=== PATIENT | female | born 1950 | race Hispanic/Latino ===

== ENCOUNTER 2025-03-02 12:30 | Inpatient (IN) | payer OTHER ==
[~2025-03-02] VITALS: Ht 157.5 cm; Wt 84.8 kg
[2025-03-02 13:58] LABS: BASOPHILS # (AUTO) 0.06 K/uL (0.00-0.20); BASOPHILS % (AUTO) 0.6 % (0.0-5.0); EOSINOPHILS # (AUTO) 0.22 K/uL (0.00-0.70); EOSINOPHILS % (AUTO) 2.2 % (0.0-8.0); HEMATOCRIT 31.6 % (36-48); IMMATURE GRANULOCYTE ABSOLUTE 0.07 K/uL (0-1); LYMPHOCYTES # (AUTO) 2.5 K/uL (1.0-4.8); LYMPHOCYTES % (AUTO) 25.7 % (21.0-51.0); MEAN CORPUSCULAR HEMOGLOBIN 29.2 pg (27.0-33.0); MEAN CORPUSCULAR HGB CONC 32.6 g/dL (32.0-36.0); MEAN CORPUSCULAR VOLUME 89.5 fL (79-99); MONOCYTES # (AUTO) 0.8 K/uL (0.1-1.0); MONOCYTES % (AUTO) 7.8 % (3.0-13.0); NEUTROPHILS # (AUTO) 6.2 K/uL (1.8-7.7); PLATELET COUNT (AUTO) 285 K/uL (130-400); RED BLOOD CELL COUNT(AUTO) 3.53 MIL/uL (4.00-5.50); WHITE BLOOD COUNT (AUTO) 9.8 K/uL (4.8-10.8)
[2025-03-02 14:06] LABS: CREATININE 1.4 mg/dL (0.5-1.0); POTASSIUM 4.2 mmol/L (3.5-5.1)
--- NOTE | 2025-03-02 14:07 | HMCIMG ---
Wrong films submitted. IMPRESSION: Wrong films submitted.
--- NOTE | 2025-03-02 14:13 | ERN ---
General Chief Complaint: Wound Check Stated Complaint: PHYSICIANS REFERRAL FOR ANTIBIOTICS Time Seen by MD: 12:31 History of Present Illness Initial Comments 25-year-old female history of diabetes presents for right wound infection. Patient reports that for the last four or so months if patient was had right- sided cellulitis and osteomyelitis in the foot. She was admitted to [facility] as well as a long-term nursing facility for IV antibiotics. She has been home for the last couple of weeks, but she was called by Dr. Tatum and told that the cultures were positive and she needs IV antibiotics. She denies any systemic symptoms currently. Patient has a note from [facility] Dr. Tatum, reports that patient had a wound culture which showed heavy growth of Klebsiella pneumoniae and carbapenem resistant acinetobacter Baumannii, MRSA, and Prevotella species. Allergies: Coded Allergies: ibuprofen (Unverified Allergy, Intermediate, 03/02/25) Past Medical History Past Medical History: Diabetes-Type II, High Cholesterol, Hypertension Past Surgical History: Other Surgical History Other: RIGHT TOE AMPUTATION ROS Dictation CONSTITUTIONAL: No chills, no fever, no weakness, no diaphoresis, no malaise. HEAD/FACE: No signs of trauma. EENT: No eye pain, no blurred vision, no tearing, no double vision, no ear pain, no ear discharge, no nose pain, no nasal congestion, no throat pain, no throat swelling, no mouth pain. RESPIRATORY: No cough, no orthopnea, no SOB, no stridor, no wheezing. CARDIOVASCULAR: No chest pain, no edema, no palpitations, no syncope. GASTROINTESTINAL/ABDOMINAL: No abdominal pain, no constipation, no diarrhea, no nausea, no vomiting. GENITOURINARY: No abnormal discharge, no dysuria, no frequent urination, no hematuria. No complaints of pain in the genitals. MUSCULOSKELETAL: No back pain, no gout, no joint pain, no joint swelling, no muscle pain, no muscle stiffness, no neck pain. INTEGUMENTARY: No change in color, no change in hair/nails, no dryness, no lesion, no lumps, no rash. NEUROLOGICAL/PSYCH: No anxiety, not depressed, no emotional problem, no headache, no numbness, no pre-existing deficit, no history of seizures, no tremors, no weakness. HEMATOLOGIC/LYMPHATIC: Not anemic, no history of blood clots, no apparent bl eeding, no bruising, glands not swollen. All Systems Negative, Except as Noted. Physical Exam Physical Exam Dictation VITAL SIGNS: Reviewed. GENERAL APPEARANCE: Alert, oriented x3, no acute distress. HEAD AND FACE: Non-traumatic. EYES: PERRL, pink conjunctivas, eyelid no trauma, anterior chamber clear. EARS: Pinnas intact and no signs of trauma or erythema. Ear canals clear and no discharge. TMs no erythema. NOSE: No discharge, no bleeding. OROPHARYNX: Mouth normal, teeth no caries, tongue pink. Pharynx clear, no erythema. Tonsils no exudates, no abscesses noted. Mucous membrane moist. NECK: Supple, non-tender, no thyromegaly, no masses, no JVD, no bruits. BREAST: Deferred. CHEST: No tenderness, no crepitus, no paradoxical movement, no retractions. LUNGS: Clear, well-ventilated, symmetric, no rales, no wheezing, no rhonchi, no stridor, good breath sounds bilaterally. HEART: Regular rate, regular rhythm, no murmur, no gallops. VASCULAR: No peripheral edema. ABDOMEN: Soft, positive bowel sounds, nondistended, no guarding, nontender, no rebound, no masses no hepatomegaly, no splenomegaly, no Monet's sign, no hernias. RECTAL: Deferred. GENITAL: Deferred. NEUROLOGICAL: Normal speech, gross motor function intact, gross sensory function intact. MUSCULOSKELETAL: Neck nontender, full range of motion, back nontender, full range of motion. R foot wound EXTREMITIES: Nontender, full range of motion. SKIN: Color pink, dry, no turgor, no rash, no lacerations, no abrasions, no contusions. LYMPHATICS: Deferred. Results Laboratory and Microbiology Lab and Micro Result Laboratory Tests Test 03/02/25 13:47 White Blood Count 9.8 K/uL (4.8-10.8) Red Blood Count 3.53 MIL/uL (4.00-5.50) L Hemoglobin 10.3 g/dL (12.0-16.0) L Hematocrit 31.6 % (36-48) L Mean Corpuscular Volume 89.5 fL (79-99) Mean Corpuscular Hemoglobin 29.2 pg (27.0-33.0) Mean Corpuscular Hemoglobin Concent 32.6 g/dL (32.0-36.0) Red Cell Distribution Width 18.0 % (11.0-15.5) H Platelet Count 285 K/uL (130-400) Mean Platelet Volume 10.6 fL (7.5-10.5) H Immature Granulocyte % (Auto) 0.7 % (0-1) Neutrophils (%) (Auto) 63.0 % (40.0-77.0) Lymphocytes (%) (Auto) 25.7 % (21.0-51.0) Monocytes (%) (Auto) 7.8 % (3.0-13.0) Eosinophils (%) (Auto) 2.2 % (0.0-8.0) Basophils (%) (Auto) 0.6 % (0.0-5.0) Neutrophils # (Auto) 6.2 K/uL (1.8-7.7) Lymphocytes # (Auto) 2.5 K/uL (1.0-4.8) Monocytes # (Auto) 0.8 K/uL (0.1-1.0) Eosinophils # (Auto) 0.22 K/uL (0.00-0.70) Basophils # (Auto) 0.06 K/uL (0.00-0.20) Absolute Immature Granulocyte (auto 0.07 K/uL (0-1) Nucleated Red Blood Cells 0.0 % (0.0-0.19) Prothrombin Time 10.7 SEC (9.6-11.6) Prothromb Time International Ratio 1.01 (0.85-1.15) Activated Partial Thromboplast Time 26.6 SEC (26.3-35.5) Sodium Level 135 mmol/L (136-145) L Potassium Level 4.2 mmol/L (3.5-5.1) Chloride Level 98 mmol/L (101-111) L Carbon Dioxide Level 30 mmol/L (21-32) Blood Urea Nitrogen 34 mg/dL (7-18) H Creatinine 1.4 mg/dL (0.5-1.0) H Glomerular Filtration Rate Calc 39 mL/min (>90) Random Glucose 134 mg/dL (70-105) H Total Calcium 8.8 mg/dL (8.5-10.1) C-Reactive Protein, Quantitative 6.30 mg/L (0.5-3.0) H MDM CC: Right diabetic foot infection Historian: Patient Comorbidities: Diabetes, high cholesterol, hypertension Limitations by social determinants of health: None Differential diagnosis, SIRS, sepsis, osteomyelitis, cellulitis, diabetic foot ulcer, hyperglycemia, electrolyte abnormalities, other. Vital signs: Hypertension otherwise unremarkable. Clinical exam: No open wound, possibly some cellulitis, neurovascularly intact. She did have a 2nd digit amputation already. Labs ( independently ordered and interpreted by me): No leukocytosis, normocytic anemia baseline for patient. Coags are stable. Chemistry panel shows stable electrolytes creatinine 1.4 BP 134. Elevated CRP inflammation. External chart review: I reviewed a [facility]. Tatum, recommends admission, consult Dr. England and Dr. Potts. MRI without contrast of the right foot. Also recommends starting she Tigacycline and Flagyl. Consult: hospitalist for admission ED Course Orders Procedure Category Date Status Time Cbc With Differential LAB 03/02/25 In Process 12:51 Basic Metabolic Panel LAB 03/02/25 Complete 12:51 Crp Quantitative LAB 03/02/25 Complete 12:51 Erythrocyte LAB 03/02/25 In Process Sedimentation Rate 12:51 Blood Cult AGUSTIN 03/02/25 In Process 12:51 Foot Comp 3+Vws Rt RAD 03/02/25 Resulted 12:51 Place Picc Line CPOE 03/02/25 Transmitted 14:09 Obtain Consent For: CPOE 03/02/25 Transmitted 14:09 Pt And Ptt LAB 03/02/25 Complete 14:16 Vital Signs Date Time Temp Pulse Resp B/P (MAP) Pulse Ox O2 Delivery O2 Flow Rate FiO2 03/02/25 12:39 98.4 86 20 195/83 99 Room Air 0 DX & DISP Disposition: Inpatient Departure Impression: Primary Impression: Cellulitis of right foot Condition: Stable Referrals: TALAT SPEAR MD (PCP) RADHA LOJA DO Mar 02, 2025 14:13
[2025-03-02 14:38] LABS: INR 1.01 (0.85-1.15); PROTHROMBIN TIME 10.7 SEC (9.6-11.6)
[2025-03-02 14:39] LABS: PARTIAL THROMBOPLASTIN TIME 26.6 SEC (26.3-35.5)
[2025-03-02] MEDS ORDERED: PHARMACY COMMUNICATION MISC SCH (15:00)
[2025-03-02] MEDS ORDERED: morPHINE 2 MG SYG IVP PRN (15:00)
[2025-03-02] MEDS ORDERED: acetaMINOPHEN 650 MG SUPPOSITORY RC PRN (15:00)
[2025-03-02] MEDS ORDERED: morPHINE 4 MG SYG IVP PRN (15:00)
[2025-03-02 15:02] LABS: ERYTHROCYTE SEDIMENTATION RATE 93 MM/HR (0-30)
[2025-03-02 15:30] VITALS: O2SAT 99
[2025-03-02] MEDS: metRONIDazole 500MG/100ML BAG 100 ML IVPB SCH (15:30)
[2025-03-02] MEDS: TIGECYCLINE 100 MG in 0.9%NACL 100ML 100 ML IV ONE (15:30)
--- NOTE | 2025-03-02 16:12 | NUR ---
DCP: HOME Pt currently lives alone in her own home. Pt denied experiencing any insecurities with food, senior living, and/or utilities.Pt uses a walker to ambulate. Pt reports being able to complete ADLS independently and only sometimes needs help getting out of the shower due to a wound that she has on her foot. Pt is receiving wound care from [facility] 3x a week. PCP is Dr. Leilani Wiseman and uses [facility] for any RX needs. Addendum: 03/02/25 at 1614 by LINDA RUSSO SS Amended: Links added.
[2025-03-02 16:41] VITALS: BP 166/78; PULSE 80; RESP 18; TEMP 98.2
--- NOTE | 2025-03-02 18:38 | HMCIMG ---
Exam Type: CHEST 1VW Clinical Information: s/p PICC placement Comparison: None Findings: Left PICC line is noted with tip within the mid superior vena cava The lungs are clear of infiltrates. The heart is enlarged. Bony and soft tissue structures of the chest wall are unremarkable. IMPRESSION: Cardiomegaly. Clear lungs.
[2025-03-02] MEDS ORDERED: PREG75CA76 PO (18:55)
[2025-03-02] MEDS ORDERED: MELA10CA2 PO (19:18)
[2025-03-02 19:24] VITALS: O2SAT 96
[2025-03-02] MEDS ORDERED: DIPH25CA85 PO (19:47)
[2025-03-02 20:00] VITALS: BP 159/75; PULSE 85; RESP 20; TEMP 98.6
--- NOTE | 2025-03-02 20:21 | HP ---
[facility] HISTORY & PHYSICAL Date Patient Seen: Mar 02, 2025 Time of Visit: 20:12 Supervising Physician: Dr Henry Garrett Primary Care Physician: Dr Wiseman Outpatient Specialists: [ ] Inpatient Consults: ID, Podiatry PROBLEM LIST: Nonhealing wound, right foot, POA Right foot cellulitis, wound culture done outside showed Klebsiella pneumoniae, carbapenem resistant Acinetobacter, MRSA, POA Peripheral vascular disease, POA DM type, POA Hypertension, POA Peripheral neuropathy, POA PLAN: Admit to medical-surgical floor VS per unit protocol Continue antibiotics ID and Podiatry consulted Wound care consult Treat fever aggressively Monitor temperature ISS and fingerstick per unit protocol Keep SBP less than 160 P.r.n. hydralazine and labetalol Bilateral SCDs Keep serum glucose less than 150 CBC, CMP, magnesium level daily HPI: 75-year-old female with past medical history of hypertension, heart murmur, DM type 2, peripheral neuropathy, PVD as s/p right 2nd toe amputation last October [address] Tatum, who presented to ED as a direct admit five Dr. Kim office here for evaluation for possible right foot cellulitis/osteomyelitis. Apparently patient underwent right 2nd toe palpitation last October 10, 2024 afterwards was sent home on outpatient wound care. Per patient two weeks ago patient underwent wound culture, and saw Dr. Tatum for results today. Patient was subsequently advised to come to ED for further medical evaluation and antibiotic therapy since her wound culture showed heavy growth of Klebsiella pneumoniae, Acinetobacter, and MRSA. At present patient is currently hemodynamically stable, on room air with appropriate oxygen saturation, denies any headache, chest pain, fever, flu-like symptoms diarrhea, or difficulty urinating. Patient denies any smoking, alcohol intake illicit drug use. Podiatry and ID was consulted pending evaluation and plan. PAST MEDICAL HX: see above PAST SURGICAL HX: Status post right 2nd toe amputation last October [address] Tatum SOCIAL HISTORY: No tobacco, ETOH, or illicit drug use Coded Allergies: ibuprofen (Unverified Allergy, Intermediate, 03/02/25) REVIEW OF SYSTEMS: 12 point ROS reviewed with patient. Pertinent positives mentioned above. Otherwise negative. PHYSICAL EXAM: GENERAL: alert, weak, awake oriented x 3 HEENT: EOMI, Sclera non icteric, moist mucosa NECK: Supple, no JVD, trachea midline LUNGS: Clear breath sounds bilaterally. No wheezes HEART: Regular rate and rhythm. Normal S1 and S2, without murmurs ABD: Abdomen soft, nontender. Bowel sounds present EXT: No clubbing cyanosis or edema; right foot cellulitis, with dressing in place NEURO: Alert and oriented to person, follows commands Vital Signs (last 8hr) Date Time Temp Pulse Resp B/P (MAP) Pulse Ox O2 Delivery O2 Flow Rate FiO2 03/02/25 20:00 98.6 85 20 159/75 97 Room Air 03/02/25 16:41 98.2 80 18 166/78 98 Room Air 03/02/25 16:06 99.0 77 16 162/68 99 Room Air* 0 21 03/02/25 14:25 99.0 70 16 178/77 98 Room Air* 0 21 03/02/25 12:39 98.4 86 20 195/83 99 Room Air 0 LABS: Hematology Labs: Test 03/02/25 13:47 Range/Units White Blood Count 9.8 4.8-10.8 K/uL Red Blood Count 3.53 L 4.00-5.50 MIL/uL Hemoglobin 10.3 L 12.0-16.0 g/dL Hematocrit 31.6 L 36-48 % Mean Corpuscular Volume 89.5 79-99 fL Mean Corpuscular Hemoglobin 29.2 27.0-33.0 pg Mean Corpuscular Hemoglobin Concent 32.6 32.0-36.0 g/dL Red Cell Distribution Width 18.0 H 11.0-15.5 % Platelet Count 285 130-400 K/uL Mean Platelet Volume 10.6 H 7.5-10.5 fL Immature Granulocyte % (Auto) 0.7 0-1 % Neutrophils (%) (Auto) 63.0 40.0-77.0 % Lymphocytes (%) (Auto) 25.7 21.0-51.0 % Monocytes (%) (Auto) 7.8 3.0-13.0 % Eosinophils (%) (Auto) 2.2 0.0-8.0 % Basophils (%) (Auto) 0.6 0.0-5.0 % Neutrophils # (Auto) 6.2 1.8-7.7 K/uL Lymphocytes # (Auto) 2.5 1.0-4.8 K/uL Monocytes # (Auto) 0.8 0.1-1.0 K/uL Eosinophils # (Auto) 0.22 0.00-0.70 K/uL Basophils # (Auto) 0.06 0.00-0.20 K/uL Absolute Immature Granulocyte (auto 0.07 0-1 K/uL Nucleated Red Blood Cells 0.0 0.0-0.19 % Red Blood Cell Morphology See comments Erythrocyte Sedimentation Rate 93 H 0-30 MM/HR Chemistry Labs: Test 03/02/25 20:07 03/02/25 15:36 03/02/25 13:47 Range/Units Whole Blood Glucose 236 #H 70-110 MG/DL Lactic Acid Level 1.1 0.8-2.5 mmol/L Sodium Level 135 L 136-145 mmol/L Potassium Level 4.2 3.5-5.1 mmol/L Chloride Level 98 L 101-111 mmol/L Carbon Dioxide Level 30 21-32 mmol/L Blood Urea Nitrogen 34 H 7-18 mg/dL Creatinine 1.4 H 0.5-1.0 mg/dL Glomerular Filtration Rate Calc 39 >90 mL/min Random Glucose 134 H 70-105 mg/dL Total Calcium 8.8 8.5-10.1 mg/dL C-Reactive Protein, Quantitative 6.30 H 0.5-3.0 mg/L Coagulation Labs: Test 03/02/25 13:47 Range/Units Prothrombin Time 10.7 9.6-11.6 SEC Prothromb Time International Ratio 1.01 0.85-1.15 Activated Partial Thromboplast Time 26.6 26.3-35.5 SEC DIAGNOSTICS / RADIOLOGY RESULTS: [ ] PLAN NEURO: Minimize central acting medications as possible. Maintain fall precautions, adequate lighting during the day PULMONARY: Supplemental 02 as needed. Maintain aspiration precautions at all times CARDIOVASCULAR: Follow hemodynamics. Vital signs per facility protocol GI & NUTRITION: Continue with nutritional support. Continue stool softeners and laxatives as needed. KIDNEYS & ELECTROLYTES: Strict monitoring of intake, output and overall fluid balance. Avoid nephrotoxic medications to the extent possible. Medications to be dosed according to renal function. Monitor electrolytes and replace as needed ENDOCRINE: Maintain blood glucose between 100-180 at all times. Hypoglycemia protocol in place INFECTIOUS DISEASE: Trend temperature, WBC and procalcitonin level Follow cultures, deescalate antibiotics as soon as possible. Panculture if new onset fever ONCOLOGY/HEMATOLOGY/COAGULATION: Monitor for s/s of bleeding Monitor hemoglobin, coagulation studies as needed SKIN: Pressure ulcer prevention per facility protocol Specialty mattress ORTHO/REHAB: Continue PT/OT Prophylaxis: Continue GI and DVT prophylaxis Code Status: Full Resuscitation Disposition: TBD Other: Total patient care time exceeds 35 minutes excluding all procedures. Supervising physician: RAYMON Alonso STOCK CLERK [employer] Mar 02, 2025 20:21
[2025-03-02] MEDS: 0.9%NACL 1000ML 1,000 ML IV SCH (21:23)
[2025-03-02] MEDS: pregABALin 75 MG CAPSULE PO SCH (21:25)
[2025-03-02] MEDS: MELATONIN 5 MG TABLET PO SCH (21:25)
[2025-03-02] MEDS: TIGECYCLINE 50 MG in 0.9%NACL 100ML 100 ML IV SCH (21:25)
[2025-03-02] MEDS: DiphenhydrAMINE HCL 25 MG CAPSULE PO SCH (21:25)
[2025-03-02 23:20] VITALS: BP 160/69; PULSE 75; RESP 20; TEMP 98.7
[2025-03-03] VITALS (8 sets, daily range): BP systolic 115–171; BP diastolic 65–75; PULSE 59–99; RESP 16–20; TEMP 97.6–98.8; O2SAT 98–99
--- NOTE | 2025-03-03 02:23 | CONS ---
INFECTIOUS DISEASE CONSULTATION NOTE DATE OF SERVICE: 03/02/2025 REQUESTING PHYSICIAN: Kevin Tatum DPM REASON FOR CONSULTATION: Right foot osteomyelitis and a wound infection. HISTORY OF PRESENT ILLNESS: A 75-year-old female with history of diabetes mellitus, right foot osteomyelitis and obesity, who presented to the hospital with right foot wound infection. The patient had also right second toe osteomyelitis for which amputation was done in the past. Also was complicated by surgical wound infection. Culture grew multiple organisms, ____ multidrug, was treated with prolonged course of antibody at [facility]. The patient eventually did well and was sent home. The patient was followed up with Dr. Tatum at [facility]. Wound culture done now showing Klebsiella pneumoniae and Acinetobacter baumannii, which are resistant to multiple agents. The patient was sent to the hospital for further evaluation. Denies fever or chills. No weight loss, no night sweats. No trauma or fall. PAST MEDICAL HISTORY: * Diabetes mellitus. * Right foot osteomyelitis. * Hypertension. * Obesity. * Cellulitis. PAST SURGICAL HISTORY: * Right second toe amputation. * Right foot wound debridement. * Peripheral angiogram. ALLERGIES: No known drug allergies. CURRENT MEDICATIONS: Reviewed. SOCIAL HISTORY: Lives with family. No alcohol, tobacco or illicit drug use. FAMILY HISTORY: Positive for diabetes mellitus. REVIEW OF SYSTEMS: CONSTITUTIONAL: No fever or chills. No weight loss or night sweats. EYES: No eye pain. No photophobia or diplopia. HENT: No sore throat. No rhinorrhea or earache. NECK: No neck pain or neck swelling. RESPIRATORY: No cough. No hemoptysis or pleuritic pain. CARDIOVASCULAR: No chest pain. No palpitation or orthopnea. GASTROINTESTINAL: Denies nausea or vomiting. GENITOURINARY: No dysuria, urgency, or urinary frequency. CENTRAL NERVOUS SYSTEM: No headache, dyspnea or slurred speech. PSYCHIATRY: No depression. No suicidal ideation. MUSCULOSKELETAL: No joint pain or joint swelling. SKIN: Denied rashes or itchiness. PHYSICAL EXAMINATION: GENERAL: Elderly female, awake. VITAL SIGNS: Temperature 98.2, pulse 80, respiratory rate 18, BP 116/78. EYES: No icterus. Pupils equal and reactive. HENT: No oral thrush seen. Moist oral mucosa. NECK: Supple. No JVD or thyromegaly. LUNGS: Good air entry. No rales. No rhonchi. CARDIOVASCULAR: S1, S2 regular. No murmur heard. ABDOMEN: Full, soft, nontender. Bowel sound is present. CENTRAL NERVOUS SYSTEM: Awake, alert, oriented x 3. No focal deficits. SKIN: No rashes, no itchiness. LYMPHATIC: No peripheral lymphadenopathy. BACK: No deformity. No pressure ulcer. EXTREMITIES: Status post right second toe amputation. Very minimal superficial ulcer. There is surrounding edema. No drainage is seen. LABORATORY DATA: ESR 93. Sodium 135, potassium 4.2, BUN 34, creatinine 1.4. WBC 9.8, hemoglobin 10.3, platelets 295. RADIOLOGY: X-ray of the right foot pending. ASSESSMENT: A 75-year-old female admitted with right foot wound infection. Current problems include: * Possible right foot osteomyelitis. * Right foot cellulitis. * Polymicrobial wound infection. * Infection with multidrug resistant organism. * Diabetes mellitus. * Elevated ESR. PLAN: * Start the patient on tigecycline. * Start the patient on metronidazole. * Continue wound care. * Obtain MRI of the right foot. * Continue pain management. * Continue antidiabetic. * Continue nutritional support. * The patient will be followed up closely. * Further recommendation will depend on MRI results. Thank you for allowing me to participate in the care of this patient. TID: [id number] RECEIPT: [id number]
--- NOTE | 2025-03-03 05:56 | CONS ---
HISTORY OF PRESENT ILLNESS: The patient is a very pleasant 75-year-old diabetic female, who was admitted with a right foot cellulitis, multidrug-resistant organism infection, being followed by Dr. Kevin Tatum as an outpatient, being followed by Dr. England from Infectious Disease standpoint. The patient is without complaints of pain. She has a T-max today of 99.0, blood pressure 175/83. She has a pulse of 86, respirations of 20. She has a white count that is 9.8, H and H 10.3 and 31.6, platelets 285. The patient has an x-ray of her right foot. The results of the x-ray of the right foot shows destruction of the distal aspect of the proximal interphalangeal joint of the first phalanx, suggestive of osteomyelitis and possible septic arthritis. There is an amputation of the second toe at the mid metatarsal level noted radiographically. The patient was admitted through the ER at the recommendation of Dr. Denisse Tatum, her outpatient port engineer, with a concern of right foot infection, cellulitis, and osteomyelitis. The patient has been at both [facility] as well as [facility] for IV antibiotic therapy. She had been at home for several weeks after being discharged from [facility] and was receiving local wound care with [facility]. Notes sent from Dr. Tatum showed the patient had cultures, which showed heavy growth of Klebsiella pneumoniae and Carbapenem-resistant Acinetobacter baumannii hemolyticus, MRSA, and Prevotella species. PAST MEDICAL HISTORY: Type 2 diabetes, elevated cholesterol, hypertension. PAST SURGICAL HISTORY: Partial right second ray amputation. ALLERGIES: THE PATIENT HAS ALLERGY TO IBUPROFEN. REVIEW OF SYSTEMS: CONSTITUTIONAL: Having no chills, no fevers, no night sweats, no nausea, vomiting, no diarrhea, no pain to the right foot. GENITOURINARY: No dysuria. BUN and creatinine levels 34 and 1.4. PSYCHIATRIC: Denies depression. 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 INTEGUMENT: She has an ulcer to the medial aspect of the right great toe, approximately 15 x 20 x 1 mm. She has an ulcer to the second ray amputation site that is measured approximately 35 x 5 x 1 mm. There is no deep tracking. There is no expressible purulence. There is no evidence of any abscess formation. There is mild edema, mild erythema to the area. EXTREMITIES: The patient has palpable pedal pulses. She has absent protective sensation to her feet bilaterally. ASSESSMENT: Nonhealing wound to the right foot, multidrug-resistant organism infection. X-rays suggesting septic arthritis to the interphalangeal joint of the right great toe and osteomyelitis to the interphalangeal joint right great toe, diabetes, hypertension, peripheral neuropathy, history of peripheral vascular disease, history of hypertension, heart murmur, type 2 diabetes, status post second partial ray amputation in 10/2024. The patient is currently receiving Lovenox, melatonin, Benadryl, Lyrica, tigecycline, metronidazole, morphine, and acetaminophen. PLAN: I took a culture of the wound and sent it to the lab. I flushed the wound with sterile saline. I applied a dressing of Silvasorb gel and Hydrofera Blue, 4 x 4 gauze and Kerlix. The patient will be evaluated by Infectious Disease for antibiotic therapy. The patient is refusing any further amputation surgery to her right foot. We will continue to follow the patient closely while in-house. TID: [id number] RECEIPT: [id number]
[2025-03-03 06:29] LABS: BASOPHILS # (AUTO) 0.05 K/uL (0.00-0.20); BASOPHILS % (AUTO) 0.7 % (0.0-5.0); EOSINOPHILS % (AUTO) 2.6 % (0.0-8.0); HEMATOCRIT 26.4 % (36-48); IMMATURE GRANULOCYTE ABSOLUTE 0.04 K/uL (0-1); LYMPHOCYTES # (AUTO) 2.6 K/uL (1.0-4.8); LYMPHOCYTES % (AUTO) 34.6 % (21.0-51.0); MEAN CORPUSCULAR HEMOGLOBIN 29.1 pg (27.0-33.0); MEAN CORPUSCULAR HGB CONC 33.3 g/dL (32.0-36.0); MEAN CORPUSCULAR VOLUME 87.4 fL (79-99); MONOCYTES # (AUTO) 0.9 K/uL (0.1-1.0); MONOCYTES % (AUTO) 11.2 % (3.0-13.0); NEUTROPHILS # (AUTO) 3.8 K/uL (1.8-7.7); NEUTROPHILS % (AUTO) 50.4 % (40.0-77.0); PLATELET COUNT (AUTO) 232 K/uL (130-400); RED BLOOD CELL COUNT(AUTO) 3.02 MIL/uL (4.00-5.50); WHITE BLOOD COUNT (AUTO) 7.6 K/uL (4.8-10.8)
[2025-03-03 06:41] LABS: CREATININE 1.4 mg/dL (0.5-1.0); MAGNESIUM 1.7 mg/dL (1.80-2.40); PHOSPHORUS 4.6 mg/dL (2.5-4.9); POTASSIUM 4.3 mmol/L (3.5-5.1)
[2025-03-03] MEDS ORDERED: PoTASSium chloRIDE 20MEQ ER 20 MEQ ERTAB PO PRN (07:00)
[2025-03-03] MEDS ORDERED: PoTASSium chl 10% ELIXIR 20MEQ 20 MEQ/15 ML UDCUP PO PRN (07:00)
[2025-03-03] MEDS ORDERED: PoTASSium chloRIDE 20MEQ/100ML 100 ML IV PRN (07:00)
[2025-03-03] MEDS: ENOXAPARIN SODIUM 40 MG/0.4 ML SYRINGE SQ SCH (09:03)
[2025-03-03] MEDS: TIGECYCLINE 50 MG in 0.9%NACL 100ML 100 ML IV SCH (09:03)
[2025-03-03] MEDS ORDERED: COMPOUND IV MISC 1 EACH IVSOLN MISC PRN (12:00)
--- NOTE | 2025-03-03 14:55 | PN ---
SUBJECTIVE: The patient is a very pleasant 75-year-old diabetic female, who was followed up for right foot cellulitis, multidrug-resistant organism infections to her right foot wound. MRI evaluation of the foot in the past, great toe osteomyelitis. The patient refuses surgical intervention. X-ray done at this visit, destruction of the distal aspect of the proximal first phalanx involving the interphalangeal joint suggesting of osteomyelitis and possible septic arthritis. The patient again is refusing amputation surgery. The patient is status post partial second ray amputation on the right. The patient is currently afebrile 97.9, blood pressure 144/68, pulse 70, respirations 18. White count trending down at 7.6, hemoglobin and hematocrit 8.8 and 26.4, platelets 232, sedimentation rate 93. REVIEW OF SYSTEMS: CONSTITUTIONAL: Denies any constitutional symptoms. o pain to the right foot. GENITOURINARY: No dysuria. BUN and creatinine 34 and 1.4. PSYCHIATRIC: Denied depression. 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 INTEGUMENT: She has an ulcer on the medial aspect of the right great toe, approximately 15 x 20 x 1 mm. She has an ulcer to the second ray amputation site on the right that is approximately 35 x 5 x 1 mm. There is no deep tracking. No odor. No pus. No abscess. No cellulitis. Mild edema. Mild erythema. Her exam shows palpable pedal pulses. She has absent productive sensation to her feet bilaterally. ASSESSMENT: Nonhealing wound to the right foot, multidrug-resistant organisms of infection. X-rays suggesting septic arthritis to the interphalangeal joint, right great toe and osteomyelitis to the interphalangeal joint. The patient refusing surgical intervention. The patient with diabetes, hypertension, peripheral neuropathy, history of peripheral vascular disease, history of hypertension, heart murmur, type 2 diabetes, status post partial second ray amputation on the right 10/2024. PLAN: The patient is currently receiving metronidazole, tigecycline and morphine. We will continue to wait for the cultures and sensitivities that were taken. I applied a dressing of SilvaSorb gel and Hydrofera Blue, 4 x 4's and Kerlix. The patient is being evaluated by Infectious Disease and is currently receiving IV tigecycline and metronidazole. We will continue to follow the patient closely while in-house. TID: [id number] RECEIPT: [id number]
--- NOTE | 2025-03-03 15:10 | PN ---
[facility] PROGRESS NOTE Date Patient Seen: Mar 03, 2025 Time of Visit: 15:10 Supervising Physician: Dr. Henry Caputo Primary Care Physician: Dr Wiseman Outpatient Specialists: [ ] Inpatient Consults: ID, Podiatry PROBLEM LIST: Nonhealing wound, right foot, POA Right foot cellulitis, wound culture done outside showed Klebsiella pneumoniae, carbapenem resistant Acinetobacter, MRSA, POA Peripheral vascular disease, POA DM type, POA Hypertension, POA Peripheral neuropathy, POA PLAN: Admit to medical-surgical floor VS per unit protocol Continue antibiotics ID and Podiatry consulted Wound care consult Treat fever aggressively Monitor temperature ISS and fingerstick per unit protocol Keep SBP less than 160 P.r.n. hydralazine and labetalol Bilateral SCDs Keep serum glucose less than 150 CBC, CMP, magnesium level daily INTERVAL HISTORY: Patient aided in her room, she is ambulating with the assistance of a walker, right foot currently bandaged. Patient was advised with the current treatment plan, she continues at this time with tigecycline and Flagyl, pending the MRI of the foot. Patient per chart review is refusing further amputation of her right foot, advised that further recommendations regarding her treatment plan and possible amputation versus long-term antibiotic therapy is dependent upon the results of the MRI. Patient expressed understanding at this time, we will order arterial Doppler for evaluation of her peripheral vascular disease and possible indication for peripheral angiogram. Patient advised with the current treatment plan and she is in agreement. REVIEW OF SYSTEMS: 12 point ROS reviewed with patient. Pertinent positives mentioned above. Otherwise negative. PHYSICAL EXAM: GENERAL: alert, weak, awake oriented x 3 HEENT: EOMI, Sclera non icteric, moist mucosa NECK: Supple, no JVD, trachea midline LUNGS: Clear breath sounds bilaterally. No wheezes HEART: Regular rate and rhythm. Normal S1 and S2, without murmurs ABD: Abdomen soft, nontender. Bowel sounds present EXT: No clubbing cyanosis or edema; right foot cellulitis, with dressing in place NEURO: Alert and oriented to person, follows commands Vital Signs (last 8hr) Date Time Temp Pulse Resp B/P (MAP) Pulse Ox O2 Delivery O2 Flow Rate FiO2 03/03/25 07:42 97.9 70 18 144/68 97 Room Air 03/03/25 07:18 98 Room Air* 0 21 LABS: Hematology Labs: Test 03/03/25 06:11 03/02/25 13:47 Range/Units White Blood Count 7.6 4.8-10.8 K/uL Red Blood Count 3.02 L 4.00-5.50 MIL/uL Hemoglobin 8.8 L 12.0-16.0 g/dL Hematocrit 26.4 L 36-48 % Mean Corpuscular Volume 87.4 79-99 fL Mean Corpuscular Hemoglobin 29.1 27.0-33.0 pg Mean Corpuscular Hemoglobin Concent 33.3 32.0-36.0 g/dL Red Cell Distribution Width 18.0 H 11.0-15.5 % Platelet Count 232 130-400 K/uL Mean Platelet Volume 10.5 7.5-10.5 fL Immature Granulocyte % (Auto) 0.5 0-1 % Neutrophils (%) (Auto) 50.4 40.0-77.0 % Lymphocytes (%) (Auto) 34.6 21.0-51.0 % Monocytes (%) (Auto) 11.2 3.0-13.0 % Eosinophils (%) (Auto) 2.6 0.0-8.0 % Basophils (%) (Auto) 0.7 0.0-5.0 % Neutrophils # (Auto) 3.8 1.8-7.7 K/uL Lymphocytes # (Auto) 2.6 1.0-4.8 K/uL Monocytes # (Auto) 0.9 0.1-1.0 K/uL Eosinophils # (Auto) 0.20 0.00-0.70 K/uL Basophils # (Auto) 0.05 0.00-0.20 K/uL Absolute Immature Granulocyte (auto 0.04 0-1 K/uL Nucleated Red Blood Cells 0.0 0.0-0.19 % Red Blood Cell Morphology See comments Erythrocyte Sedimentation Rate 93 H 0-30 MM/HR Chemistry Labs: Test 03/03/25 06:11 03/03/25 05:02 03/02/25 15:36 03/02/25 13:47 Range/Units Sodium Level 141 136-145 mmol/L Potassium Level 4.3 3.5-5.1 mmol/L Chloride Level 105 101-111 mmol/L Carbon Dioxide Level 29 21-32 mmol/L Blood Urea Nitrogen 36 H 7-18 mg/dL Creatinine 1.4 H 0.5-1.0 mg/dL Glomerular Filtration Rate Calc 39 >90 mL/min Random Glucose 147 H 70-105 mg/dL Total Calcium 8.4 L 8.5-10.1 mg/dL Phosphorus Level 4.6 2.5-4.9 mg/dL Magnesium Level 1.70 L 1.80-2.40 mg/dL Procalcitonin 0.08 0.05-0.5 ng/mL Whole Blood Glucose 133 H 70-110 MG/DL Lactic Acid Level 1.1 0.8-2.5 mmol/L C-Reactive Protein, Quantitative 6.30 H 0.5-3.0 mg/L Coagulation Labs: Test 03/02/25 13:47 Range/Units Prothrombin Time 10.7 9.6-11.6 SEC Prothromb Time International Ratio 1.01 0.85-1.15 Activated Partial Thromboplast Time 26.6 26.3-35.5 SEC DIAGNOSTICS / RADIOLOGY RESULTS: [ ] PLAN NEURO: Minimize central acting medications as possible. Maintain fall precautions, adequate lighting during the day PULMONARY: Supplemental 02 as needed. Maintain aspiration precautions at all times CARDIOVASCULAR: Follow hemodynamics. Vital signs per facility protocol GI & NUTRITION: Continue with nutritional support. Continue stool softeners and laxatives as needed. KIDNEYS & ELECTROLYTES: Strict monitoring of intake, output and overall fluid balance. Avoid nephrotoxic medications to the extent possible. Medications to be dosed according to renal function. Monitor electrolytes and replace as needed ENDOCRINE: Maintain blood glucose between 100-180 at all times. Hypoglycemia protocol in place INFECTIOUS DISEASE: Trend temperature, WBC and procalcitonin level Follow cultures, deescalate antibiotics as soon as possible. Panculture if new onset fever ONCOLOGY/HEMATOLOGY/COAGULATION: Monitor for s/s of bleeding Monitor hemoglobin, coagulation studies as needed SKIN: Pressure ulcer prevention per facility protocol Specialty mattress ORTHO/REHAB: Continue PT/OT Prophylaxis: Continue GI and DVT prophylaxis Code Status: Full Resuscitation Disposition: TBD Other: Total patient care time exceeds 35 minutes excluding all procedures. DEE ANDERSON Mar 03, 2025 15:10
--- NOTE | 2025-03-03 15:59 | NUR ---
PT TOOK A SHOWER AND THEN REMOVED COVERING TO PICC LINE AND LEFT FOOT " SHE DIDN'T WANT TO WAIT FOR STAFF;. REMOVED HALF OF HER PICC LINE DRESSING AND TAPE FROM HER FOOT DRESSING. TEACHING ON NOT REMOVING COVERING AND TO WAIT FOR STAFF. FOOT DRESSING SECURED AND PICC LINE DRESSING CHANGED
[2025-03-03] MEDS: DiphenhydrAMINE HCL 25 MG CAPSULE PO PRN (17:56)
[2025-03-03] MEDS: MAGNESIUM 2GM PREMIX 50ML 50 ML IV PRN (17:57)
[2025-03-03] MEDS ORDERED: DIPHENHYDRAMINE HCL 50 MG CAPSULE PO PRN (18:00)
--- NOTE | 2025-03-03 19:11 | HMCIMG ---
US VENOUS DOPPLER BILATERAL INDICATION: Swelling. Ft. Wound/osteo TECHNIQUE: US VENOUS DOPPLER BILATERAL Real-time venous Doppler ultrasound was performed using B mode, color flow and spectral analysis. FINDINGS: The visualized greater saphenous junction, common femoral, deep femoral, superficial femoral, popliteal and posterior tibial veins demonstrate normal compressibility and flow. No DVT is identified. IMPRESSION: No evidence of DVT in the visualized bilateral extremities.
--- NOTE | 2025-03-03 21:01 | PN ---
INFECTIOUS DISEASE FOLLOWUP NOTE DATE OF SERVICE: 03/03/2025 SUBJECTIVE: The patient is seen. The patient has no fever or chills. No sore throat or rhinorrhea. No depression, no suicidal ideation. No joint pain or joint swelling. X-ray of the right foot shows right great toe osteomyelitis. PHYSICAL EXAMINATION: VITAL SIGNS: Temperature 98.5. EYES: No icterus. Pupils are equal and reactive. HENT: No oral thrush seen. Dry oral mucosa. NECK: Supple. No JVD or thyromegaly. LUNGS: Good air entry. No rales. No rhonchi. CARDIOVASCULAR: S1 and S2, regular. No murmur heard. ABDOMEN: Obese, soft, nontender. Bowel sound is present. CENTRAL NERVOUS SYSTEM: Awake, alert, oriented x 3. No focal deficits. SKIN: No rashes. No itchiness. LYMPHATIC: No peripheral lymphadenopathy. HEMATOLOGIC: No blood up the right great toe. BACK: No deformity. No pressure ulcer. HEMATOLOGIC: No bleeding or petechial lesions seen. EXTREMITIES: Ulcer involving the right great toe. ASSESSMENT: A 75-year-old female with multiple problems including: * Right foot osteomyelitis. * Diabetic foot ulcer. * Right foot cellulitis. * Infection with multidrug resistant organism. * Obesity. * Debility. * Hypertension. PLAN: * Continue wound care. * Continue tigecycline. * Continue pain management. * Continue Flagyl. * Continue nutritional support. * Monitor electrolytes. * Continue antidiabetic. TID: [id number] RECEIPT: [id number]
[2025-03-03] MEDS: acetaMINOPHEN 325 MG TAB PO PRN (21:18)
[2025-03-04] VITALS (7 sets, daily range): BP systolic 149–193; BP diastolic 50–81; PULSE 71–81; RESP 16–20; TEMP 97.7–98.6; O2SAT 98–100
--- NOTE | 2025-03-04 10:44 | HMCIMG ---
ULTRASOUND ARTERIAL DUPLEX LOWER EXTREMITY, BILATERAL INDICATION: Osteomyelitis, foot wound TECHNIQUE: Routine grayscale, color Doppler, and power Doppler ultrasound of the bilateral lower extremity arteries were obtained. COMPARISON: None FINDINGS: Velocities in cm/sec. RIGHT: EXPERIMENTAL FLIGHT TEST MECHANIC: 139 SFA: Prox 119, Mid 112, Distal 80 Popliteal: 138 distally Anterior Tibial: 100 distally Posterior Tibial: 114 Dorsalis Pedis: 123 Monophasic flow along the right lower extremity arterial system. LEFT: EXPERIMENTAL FLIGHT TEST MECHANIC: 121, triphasic SFA: Prox 150, triphasic; Mid 93, triphasic; Distal 81, biphasic Popliteal: 98 distally, biphasic Anterior Tibial: 94 distally, monophasic Posterior Tibial: 60, monophasic Dorsalis Pedis: 75, monophasic IMPRESSION: Monophasic flow along the right lower extremity arterial system and also along the left posterior tibial, anterior tibial, and dorsalis pedis arteries without any evidence for high-grade stenosis or occlusion. Parameters as reported.
[2025-03-04] MEDS: hydrALAZine 25MG TABLET PO SCH (12:51)
[2025-03-04] MEDS ORDERED: LACTULOSE 20 GM/30 ML UDCUP PO PRN (13:00)
[2025-03-04] MEDS: LAbetaLOL 20MG SYG IV PRN (16:32)
--- NOTE | 2025-03-04 18:02 | PN ---
SUBJECTIVE: The patient is a very pleasant 75-year-old diabetic female, who is followed up for an ulcer to the first ray on the right, a second ray amputation on the right, right foot cellulitis, multidrug-resistant organism infection, MRI suggesting great toe osteomyelitis. The patient refuses surgical intervention. The patient is currently afebrile, 98.1, pulse 71, respirations 16, blood pressure 152/72. The patient is being followed by Infectious Disease and is currently receiving IV tigecycline, metronidazole. The patient has denied any chills, fevers, night sweats, nausea, vomiting, diarrhea. No pain to the right foot. Infectious Disease is following the patient closely and the patient is on tigecycline and Flagyl. REVIEW OF SYSTEMS: CONSTITUTIONAL: No pain to the right foot. GENITOURINARY: BUN and creatinine 34 and 1.4. PSYCHIATRIC: Denies depression. 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 INTEGUMENT: She has an ulcer to the medial aspect of the right great toe, 15 x 20 x 1 mm. She has an ulcer to the first interspace area on the right 35 x 5 x 1 mm. There is no odor, no abscess. No ascending cellulitis. Has periwound erythema. She has palpable pedal pulses. She has absent protective sensation. ASSESSMENT: Ulcer to the right interspace, right first toe; multidrug-resistant organism infection; chronic first toe osteomyelitis. X-rays suggest septic arthritis. The patient is receiving tigecycline and Flagyl. 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 PLAN: The patient is currently receiving metronidazole, tigecycline and morphine for pain. We are awaiting the cultures and sensitivities that were taken. We will continue with SilvaSorb gel dressings and Hydrofera Blue antibiotic therapy per Infectious Disease. Follow the patient closely while in-house. Anticipate discharge with antibiotic therapy per Infectious Disease. TID: [id number] RECEIPT: [id number]
[2025-03-04] MEDS: doCUSate SODIUM 100 MG CAP PO ONE (20:56)
--- NOTE | 2025-03-04 21:28 | PN ---
[facility] PROGRESS NOTE Date Patient Seen: Mar 04, 2025 Time of Visit: 21:27 Supervising Physician: [ ] Supervising Physician: Dr. Henry Caputo Primary Care Physician: Dr Wiseman Outpatient Specialists: [ ] Inpatient Consults: ID, Podiatry PROBLEM LIST: Nonhealing wound, right foot, POA Right foot cellulitis, wound culture done outside showed Klebsiella pneumoniae, carbapenem resistant Acinetobacter, MRSA, POA Peripheral vascular disease, POA DM type, POA Hypertension, POA Peripheral neuropathy, POA PLAN: Admit to medical-surgical floor VS per unit protocol Continue antibiotics ID and Podiatry consulted Wound care consult Treat fever aggressively Monitor temperature ISS and fingerstick per unit protocol Keep SBP less than 160 P.r.n. hydralazine and labetalol Bilateral SCDs Keep serum glucose less than 150 CBC, CMP, magnesium level daily INTERVAL HISTORY: Patient evaluated in her room, she is currently in no acute distress, remains pending MRI at this time for further evaluation of osteomyelitis. She continues on tigecycline and Flagyl. Patient states that she is voiding her bowels and ur inating appropriately. Tolerating her diet. We will continue with the current treatment plan and administration of antibiotics pending MRI for further evaluation and recommendations regarding amputation which at this point patient was refusing. REVIEW OF SYSTEMS: 12 point ROS reviewed with patient. Pertinent positives mentioned above. Otherwise negative. PHYSICAL EXAM: GENERAL: alert, weak, awake oriented x 3 HEENT: EOMI, Sclera non icteric, moist mucosa NECK: Supple, no JVD, trachea midline LUNGS: Clear breath sounds bilaterally. No wheezes HEART: Regular rate and rhythm. Normal S1 and S2, without murmurs ABD: Abdomen soft, nontender. Bowel sounds present EXT: No clubbing cyanosis or edema; right foot cellulitis, with dressing in place NEURO: Alert and oriented to person, follows commands Vital Signs (last 8hr) Date Time Temp Pulse Resp B/P (MAP) Pulse Ox O2 Delivery O2 Flow Rate FiO2 03/04/25 20:30 98.6 81 17 182/50 98 Room Air 03/04/25 16:32 78 184/78 03/04/25 16:00 98.2 78 19 184/78 97 Room Air LABS: Hematology Labs: Test 03/03/25 06:11 Range/Units White Blood Count 7.6 4.8-10.8 K/uL Red Blood Count 3.02 L 4.00-5.50 MIL/uL Hemoglobin 8.8 L 12.0-16.0 g/dL Hematocrit 26.4 L 36-48 % Mean Corpuscular Volume 87.4 79-99 fL Mean Corpuscular Hemoglobin 29.1 27.0-33.0 pg Mean Corpuscular Hemoglobin Concent 33.3 32.0-36.0 g/dL Red Cell Distribution Width 18.0 H 11.0-15.5 % Platelet Count 232 130-400 K/uL Mean Platelet Volume 10.5 7.5-10.5 fL Immature Granulocyte % (Auto) 0.5 0-1 % Neutrophils (%) (Auto) 50.4 40.0-77.0 % Lymphocytes (%) (Auto) 34.6 21.0-51.0 % Monocytes (%) (Auto) 11.2 3.0-13.0 % Eosinophils (%) (Auto) 2.6 0.0-8.0 % Basophils (%) (Auto) 0.7 0.0-5.0 % Neutrophils # (Auto) 3.8 1.8-7.7 K/uL Lymphocytes # (Auto) 2.6 1.0-4.8 K/uL Monocytes # (Auto) 0.9 0.1-1.0 K/uL Eosinophils # (Auto) 0.20 0.00-0.70 K/uL Basophils # (Auto) 0.05 0.00-0.20 K/uL Absolute Immature Granulocyte (auto 0.04 0-1 K/uL Nucleated Red Blood Cells 0.0 0.0-0.19 % Chemistry Labs: Test 03/04/25 19:33 03/03/25 06:11 Range/Units Whole Blood Glucose 143 H 70-110 MG/DL Sodium Level 141 136-145 mmol/L Potassium Level 4.3 3.5-5.1 mmol/L Chloride Level 105 101-111 mmol/L Carbon Dioxide Level 29 21-32 mmol/L Blood Urea Nitrogen 36 H 7-18 mg/dL Creatinine 1.4 H 0.5-1.0 mg/dL Glomerular Filtration Rate Calc 39 >90 mL/min Random Glucose 147 H 70-105 mg/dL Total Calcium 8.4 L 8.5-10.1 mg/dL Phosphorus Level 4.6 2.5-4.9 mg/dL Magnesium Level 1.70 L 1.80-2.40 mg/dL Procalcitonin 0.08 0.05-0.5 ng/mL DIAGNOSTICS / RADIOLOGY RESULTS: [ ] PLAN NEURO: Minimize central acting medications as possible. Maintain fall precautions, adequate lighting during the day PULMONARY: Supplemental 02 as needed. Maintain aspiration precautions at all times CARDIOVASCULAR: Follow hemodynamics. Vital signs per facility protocol GI & NUTRITION: Continue with nutritional support. Continue stool softeners and laxatives as needed. KIDNEYS & ELECTROLYTES: Strict monitoring of intake, output and overall fluid balance. Avoid nephrotoxic medications to the extent possible. Medications to be dosed according to renal function. Monitor electrolytes and replace as needed ENDOCRINE: Maintain blood glucose between 100-180 at all times. Hypoglycemia protocol in place INFECTIOUS DISEASE: Trend temperature, WBC and procalcitonin level Follow cultures, deescalate antibiotics as soon as possible. Panculture if new onset fever ONCOLOGY/HEMATOLOGY/COAGULATION: Monitor for s/s of bleeding Monitor hemoglobin, coagulation studies as needed SKIN: Pressure ulcer prevention per facility protocol Specialty mattress ORTHO/REHAB: Continue PT/OT Prophylaxis: Continue GI and DVT prophylaxis Code Status: Full Resuscitation Disposition: TBD Other: Total patient care time exceeds 35 minutes excluding all procedures. DEE ANDERSON Mar 04, 2025 21:27
[2025-03-05] VITALS (7 sets, daily range): BP systolic 128–178; BP diastolic 49–73; PULSE 66–82; RESP 16–19; TEMP 97.7–98.9; O2SAT 98
--- NOTE | 2025-03-05 06:48 | PN ---
SUBJECTIVE: The patient is a very pleasant 75-year-old diabetic female who is followed up for chronic osteomyelitis to her right great toe and followed up for a polymicrobial wound infection. The patient is receiving IV tigecycline per Infectious Disease. The patient has currently been afebrile with a T-max of 98.1, pulse 68, respirations 17, blood pressure 129/49. The patient has a white count of 7.6, H and H are 8,8 and 26.4, platelets 232, neutrophils 50.4. The patient is currently receiving IV tigecycline per Infectious Disease and metronidazole. The patient has had an x-ray which has shown destruction of the distal aspect of the proximal first phalanx involving the interphalangeal joint, suggestion of osteomyelitis and the possibility of a septic joint. The patient is status post partial second ray amputation on the right. The patient's arterial Doppler studies on the right, monophasic waveforms along the right lower extremity arterial system. The patient has had wound cultures of the right foot, 3+ gram negative rods, identifications and sensitivities to follow, 2+ gram positive cocci in clusters, Staph aureus. Blood cultures were no growth for 48 hours. The patient has chronic osteomyelitis to the right great toe and refuses amputation surgery. The patient is being followed by Dr. England from an Infectious Disease standpoint. The patient is requesting long-term IV antibiotic therapy. REVIEW OF SYSTEMS: CONSTITUTIONAL: No pain to the right foot. HEENT: No problems with eyes, ears, nose or throat. CARDIOVASCULAR: Has had abnormal arterial Doppler studies; however, the wound is healing well to the right foot. PSYCHIATRIC: Denies any depression. 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 INTEGUMENT: Shows an ulcer to the medial aspect of the right great toe, 15 x 20 x 1 mm and ulcer at the first interspace, 35 x 5 x 1 mm. No odor and no pus. No necrosis, no cellulitis. Periwound erythema. The patient has documented chronic osteomyelitis of the right great toe interphalangeal joint on that right side. She does have palpable pedal pulses. ASSESSMENT: Ulcer right first interspace and right first toe, documented chronic osteomyelitis of the right great toe, multidrug-resistant organism infection, identifications and sensitivities pending. The patient is on tigecycline and metronidazole per Infectious Disease. The patient refused an amputation surgery to the osteomyelitis to the right first interphalangeal joint area. The patient is status post second ray amputation on the right. PLAN: We will continue with the metronidazole and tigecycline and morphine for pain. Awaiting the results of the sensitivities and identifications from her wound cultures. We will continue with local wound care with Hydrofera Blue dressings. Follow the patient closely in-house. Anticipate discharge with antibiotics per Infectious Disease once the cultures and sensitivities are finalized. TID: [id number] RECEIPT: [id number]
[2025-03-05 06:51] LABS: HEMATOCRIT 28.2 % (36-48); MEAN CORPUSCULAR HEMOGLOBIN 29.4 pg (27.0-33.0); MEAN CORPUSCULAR HGB CONC 33.3 g/dL (32.0-36.0); MEAN CORPUSCULAR VOLUME 88.1 fL (79-99); RED BLOOD CELL COUNT(AUTO) 3.2 MIL/uL (4.00-5.50); RED CELL DISTRIBUTION WIDTH 17.7 % (11.0-15.5)
[2025-03-05 06:57] LABS: CREATININE 1.6 mg/dL (0.5-1.0); POTASSIUM 4.3 mmol/L (3.5-5.1)
--- NOTE | 2025-03-05 07:00 | PN ---
INFECTIOUS DISEASE FOLLOWUP NOTE DATE OF SERVICE: 03/04/2025 SUBJECTIVE: The patient is seen and examined at bedside today. The patient has no fever, no chills. No nausea, vomiting. . Denies depression or suicidal ideation. No bleeding tendencies. No rashes or itchiness. PHYSICAL EXAMINATION: VITAL SIGNS: Temperature today 97.3. EYES: No icterus. Pupils are equal and reactive. HENT: No oral thrush seen. Moist oral mucosa. NECK: Supple. No JVD or thyromegaly. LUNGS: Good air entry. No rales. No rhonchi. CARDIOVASCULAR: S1, S2 regular. No murmur heard. ABDOMEN: Full. Soft. Nontender. Bowel sound is present. CENTRAL NERVOUS SYSTEM: Awake, alert, oriented x 3. No focal deficits. SKIN: No rashes, no itchiness. LYMPHATIC: Right inguinal lymphadenopathy. BACK: No deformity. No pressure ulcer. EXTREMITIES: Ulcer involving the right great toe. ASSESSMENT: A 75-year-old female with multiple problems which include: * Diabetic foot ulcer. * Right great toe osteomyelitis. * Cellulitis. * Infection with multidrug-resistant organism. * Peripheral vascular disease. * Hypertension. * Polymicrobial wound infection. PLAN: * Continue pain management. * Continue wound care. * Continue anti-diabetic. * Continue tigecycline. * Monitor electrolytes. * Continue DVT prophylaxis. * The patient will be followed up closely. TID: [id number] RECEIPT: [id number]
[2025-03-05] MEDS: doCUSate SODIUM 100 MG CAP PO SCH (08:35)
--- NOTE | 2025-03-05 09:08 | PN ---
[facility] PROGRESS NOTE Date Patient Seen: Mar 05, 2025 Time of Visit: 09:08 Supervising Physician: Dr. Henry Caputo Supervising Physician: Dr. Henry Caputo Primary Care Physician: Dr Wiseman Outpatient Specialists: [ ] Inpatient Consults: ID, Podiatry PROBLEM LIST: Nonhealing wound, right foot, POA Right foot cellulitis, wound culture done outside showed Klebsiella pneumoniae, carbapenem resistant Acinetobacter, MRSA, POA Peripheral vascular disease, POA DM type, POA Hypertension, POA Peripheral neuropathy, POA PLAN: [facility] clinic consulted for outpatient antibiotics Admit to medical-surgical floor VS per unit protocol Continue antibiotics ID and Podiatry consulted Wound care consult Treat fever aggressively Monitor temperature ISS and fingerstick per unit protocol Keep SBP less than 160 P.r.n. hydralazine and labetalol Bilateral SCDs Keep serum glucose less than 150 CBC, CMP, magnesium level daily INTERVAL HISTORY: Patient evaluated at bedside, she is in good spirits, right foot appears to be healing well. She is still pending MRI at this time. Patient continues to endorse that her home health is able to administer outpatient antibiotics. At this time it was my understanding that [facility] has been consulted due to the need of administration of tigecycline. Pending final word from Infectious Disease. She has a new protective boot from Podiatry, patient states that she is able to be much more ambulatory with this versus the when she had previously. No nausea or vomiting, no adverse reactions to antibiotic therapy. REVIEW OF SYSTEMS: 12 point ROS reviewed with patient. Pertinent positives mentioned above. Otherwise negative. PHYSICAL EXAM: GENERAL: alert, weak, awake oriented x 3 HEENT: EOMI, Sclera non icteric, moist mucosa NECK: Supple, no JVD, trachea midline LUNGS: Clear breath sounds bilaterally. No wheezes HEART: Regular rate and rhythm. Normal S1 and S2, without murmurs ABD: Abdomen soft, nontender. Bowel sounds present EXT: No clubbing cyanosis or edema; right foot cellulitis, with dressing in place NEURO: Alert and oriented to person, follows commands Vital Signs (last 8hr) Date Time Temp Pulse Resp B/P (MAP) Pulse Ox O2 Delivery O2 Flow Rate FiO2 03/05/25 08:00 98.1 66 19 128/51 99 Room Air 21 03/05/25 04:29 98.1 68 17 129/49 97 Room Air 03/05/25 01:14 76 171/70 LABS: Hematology Labs: Test 03/05/25 06:42 Range/Units White Blood Count 9.0 4.8-10.8 K/uL Red Blood Count 3.20 L 4.00-5.50 MIL/uL Hemoglobin 9.4 L 12.0-16.0 g/dL Hematocrit 28.2 L 36-48 % Mean Corpuscular Volume 88.1 79-99 fL Mean Corpuscular Hemoglobin 29.4 27.0-33.0 pg Mean Corpuscular Hemoglobin Concent 33.3 32.0-36.0 g/dL Red Cell Distribution Width 17.7 H 11.0-15.5 % Platelet Count 242 130-400 K/uL Mean Platelet Volume 10.4 7.5-10.5 fL Nucleated Red Blood Cells 0.0 0.0-0.19 % Chemistry Labs: Test 03/05/25 06:42 03/05/25 05:15 Range/Units Sodium Level 137 136-145 mmol/L Potassium Level 4.3 3.5-5.1 mmol/L Chloride Level 104 101-111 mmol/L Carbon Dioxide Level 28 21-32 mmol/L Blood Urea Nitrogen 45 H 7-18 mg/dL Creatinine 1.6 H 0.5-1.0 mg/dL Glomerular Filtration Rate Calc 33 >90 mL/min Random Glucose 136 H 70-105 mg/dL Total Calcium 8.5 8.5-10.1 mg/dL Whole Blood Glucose 125 H 70-110 MG/DL DIAGNOSTICS / RADIOLOGY RESULTS: [ ] PLAN NEURO: Minimize central acting medications as possible. Maintain fall precautions, adequate lighting during the day PULMONARY: Supplemental 02 as needed. Maintain aspiration precautions at all times CARDIOVASCULAR: Follow hemodynamics. Vital signs per facility protocol GI & NUTRITION: Continue with nutritional support. Continue stool softeners and laxatives as needed. KIDNEYS & ELECTROLYTES: Strict monitoring of intake, output and overall fluid balance. Avoid nephrotoxic medications to the extent possible. Medications to be dosed according to renal function. Monitor electrolytes and replace as needed ENDOCRINE: Maintain blood glucose between 100-180 at all times. Hypoglycemia protocol in place INFECTIOUS DISEASE: Trend temperature, WBC and procalcitonin level Follow cultures, deescalate antibiotics as soon as possible. Panculture if new onset fever ONCOLOGY/HEMATOLOGY/COAGULATION: Monitor for s/s of bleeding Monitor hemoglobin, coagulation studies as needed SKIN: Pressure ulcer prevention per facility protocol Specialty mattress ORTHO/REHAB: Continue PT/OT Prophylaxis: Continue GI and DVT prophylaxis Code Status: Full Resuscitation Disposition: TBD Other: Total patient care time exceeds 35 minutes excluding all procedures. DEE ANDERSON Mar 05, 2025 09:08
--- NOTE | 2025-03-05 17:06 | HMCIMG ---
MR FOOT RIGHT WO HISTORY: No additional history given. COMPARISON: None TECHNIQUE: MRI of the right foot was performed utilizing multiple pulse sequences in axial, coronal and sagittal planes. Patient was not given contrast through intravenous route. FINDINGS: Abnormal increased signal intensity is seen involving the first proximal and distal phalanges suspicious for osteomyelitis in the proper clinical setting. Adjacent similar changes are seen. There are motion artifacts degrading image quality. There is also osteomyelitis is suspected involving the head of the first metatarsal bone. IMPRESSION: 1. Suspect osteomyelitis involving the first proximal and distal phalanges and head of the first metatarsal bone.
--- NOTE | 2025-03-05 17:27 | PN ---
INFECTIOUS DISEASE PROGRESS NOTE Date of Service: Mar 05, 2025 SUBJECTIVE: This is a 75-year-old female patient who presented to the hospital for evaluation of right foot infection with cellulitis with possible osteomyelitis. An MRI of the right foot showed suspicious for osteomyelitis involving the right 1st proximal and distal phalanges and the head of the 1st metatarsal bone. The wound culture results growing Enterococcus faecalis and methicillin-resistant Staphylococcus aureus. Patient is currently on tigecycline IV. Patient is afebrile, temperature is 97.7 and a WBC of 9.0. We will have case management evaluate patient for referral to [facility] for outpatient IV antibiotics for 6 weeks. Patient aware of this plan and in agreement. We will continue to follow patient's care. PHYSICAL EXAM EYES: Anicteric. Pupils equal and reactive. HENT: No oral thrush seen, moist Oral mucosa. NECK: Supple, no JVD or thyromegaly. LUNGS: Good air entry. No rales, no rhonchi. CARDIOVASCULAR: S1, S2 regular. No murmur heard. ABDOMEN: Soft, non tender, bowel sounds present, no organomegaly CENTRAL NERVOUS SYSTEM: Awake, alert, oriented x 3. SKIN: No rashes, no swelling. LYMPHATICS: No peripheral lymphadenopathy. MUSCULOSKELETAL: No joint swelling, erythema or tenderness. EXTREMITIES: No cyanosis or clubbing. Right foot diabetic ulcer. BACK: No deformity, no pressure ulcer. GENITOURINARY: No dysuria or hematuria. Vital Sign (Last 12 Hours) 03/05/25 03/05/25 03/05/25 03/05/25 08:00 08:00 12:00 16:00 Temp 98.1 97.7 98.6 Pulse 66 69 74 Resp 19 19 18 B/P (MAP) 128/51 178/67 161/72 Pulse Ox 99 98 98 98 O2 Delivery Room Air Room Air* Room Air Room Air O2 Flow Rate 0 FiO2 21 21 21 21 Intake & Output (last 24hrs) 03/04/25 03/04/25 03/05/25 15:00 23:00 07:00 Intake Total 300.0 ml Balance 300.0 ml LABS: Laboratory: Test 03/05/25 15:46 03/05/25 06:42 Range/Units Whole Blood Glucose 170 H 70-110 MG/DL White Blood Count 9.0 4.8-10.8 K/uL Red Blood Count 3.20 L 4.00-5.50 MIL/uL Hemoglobin 9.4 L 12.0-16.0 g/dL Hematocrit 28.2 L 36-48 % Mean Corpuscular Volume 88.1 79-99 fL Mean Corpuscular Hemoglobin 29.4 27.0-33.0 pg Mean Corpuscular Hemoglobin Concent 33.3 32.0-36.0 g/dL Red Cell Distribution Width 17.7 H 11.0-15.5 % Platelet Count 242 130-400 K/uL Mean Platelet Volume 10.4 7.5-10.5 fL Nucleated Red Blood Cells 0.0 0.0-0.19 % Sodium Level 137 136-145 mmol/L Potassium Level 4.3 3.5-5.1 mmol/L Chloride Level 104 101-111 mmol/L Carbon Dioxide Level 28 21-32 mmol/L Blood Urea Nitrogen 45 H 7-18 mg/dL Creatinine 1.6 H 0.5-1.0 mg/dL Glomerular Filtration Rate Calc 33 >90 mL/min Random Glucose 136 H 70-105 mg/dL Total Calcium 8.5 8.5-10.1 mg/dL DIAGNOSTICS / RADIOLOGY: PATIENT: GRICELDA MCLAIN ACCT: [id number] LOC: [facility] U: [id number] AGE/SX: 75/F ROOM: [facility] RE03/02/[address]: ARVIN PRADO : 1950 BED: 1 DIS: STATUS: ADM IN TLOC: SPEC: [id number] FRANKY: 03/02/25 STATUS: RES REQ: [id number] RECD: 03/02/25-[address]: JADE JOHNS SOURCE: FOOT ENTR: 03/02/25-[address]: SARATH HERNANDEZ MD SPDESC: FRANC WINSTON DPM, CARLINA S M.D. WORTH, RYAN E DO ORDERED: LIAT CULTURE, AEROBIC CULTURE COMMENTS: Critical result called to, and read back performed by: Name/Title: KELIN/TIENChelsi SUAREZ LVN on 03/05/25 at 0845. Call made by JAK. Procedure Result Arturo Date-Time ANAEROBIC CULTURE Preliminary 03/05/25-1105 MRL COLONY DESCRIPTION: REPORT 1: NO ANAEROBES AT 24-35 HOURS; STUDIES TO CONTINUE REPORT 2: NO ANAEROBES AT 48-59 HOURS; STUDIES TO CONTINUE Test(s) performed by: [facility] [address] [place] [address] AEROBIC CULTURE Preliminary 03/05/25-1105 MRL METHICILLIN-RESISTANT STAPHYLOCOCCUS AUREUS RESULT WAS CALLED BY АЛЕКСАНДР SHELL ON 03/05/25 AT 0803. CRITICAL VALUES WERE READ BACK AND ACKNOWLEDGED BY MARIELA BOUCHER ( [facility] ) COLONY DESCRIPTION: REPORT 1: 3+ GRAM NEGATIVE RODS IDENTIFICATION AND SENSITIVITY TO FOLLOW 2+ GRAM POSITIVE COCCI IN CLUSTERS STAPHYLOCOCCUS AUREUS SENSITIVITY TO FOLLOW REPORT 2: GRAM NEGATIVE RODS , SLOW-GROWER; RESULTS PENDING 1+ GRAM POSITIVE COCCI IN CHAINS . IDENTIFICATION AND SENSITIVITY TO FOLLOW ENTEROCOCCUS FAECALIS STAPHYLOCOCCUS AUREUS-MRSA CONTINUED ON NEXT PAGE RUN DATE: 03/05/25 [facility] PAGE 2 RUN TIME: [id number] [address], [place] [address] [facility] DANIEL # [id number] Telegraph Equipment Maintainer: Jin Ibrahim DO Specimen Report SPEC: [id number] PATIENT: GRICELDA MCLAIN [id number] (Continued) Procedure Result Arturo Date-Time AEROBIC CULTURE Preliminary (continued) 03/05/25-1105 E FAECALIS MRSA M.I.C. RX M.I.C. RX --------- ---- --------- ---- AMPICILLIN <=2 S CLINDAMYCIN >2 R ERYTHROMYCIN >4 R GENTAMICIN <=4 S VANCOMYCIN 1 S 1 S OXACILLIN AGUSTIN >2 R RIFAMPIN <=1 S TETRACYCLINE <=4 S GENTAMICIN Synergy Screen >500 R PENICILLIN 2 S STREPTOMYCIN Synergy Screen <=1000 S TRIMETHOPRIM/SUFLAMETHOXAZOLE <=0.5/9.5 S ENTEROCOCCUS FAECALIS: POSITIVE COMBO 34 Streptomycin Synergy Screen S Gentamicin Synergy Screen R ASSESSMENT: Right foot diabetic ulcer with methicillin-resistant Staphylococcus aureus infection. Right great toe osteomyelitis. Right foot cellulitis. Diabetes mellitus. Peripheral vascular disease. Hypertension. PLAN: Continue tigecycline 50 mg IV every12 hours. Continue metronidazole IV. Patient will need IV antibiotics for 6 weeks. Case management evaluation for referral to [facility] for outpatient IV antibiotics x 6 weeks. Prescription was written. Continue pain management. This case was reviewed and discussed with my supervising physician and the above assessment and plan was formulated and agreed upon. ATTESTATION BY PHYSICIAN I have seen and examined the patient. I reviewed the documentation, medical decision making, and treatment plan as noted by the mid-level provider above. I agree with the findings and plan of care. SARATH HERNANDEZ MD, [facility] Mar 05, 2025 17:27
[2025-03-06 00:06] VITALS: BP 151/56; PULSE 71; RESP 19; TEMP 98.7
[2025-03-06 04:08] VITALS: BP 141/59; PULSE 66; RESP 18; TEMP 98.5
[2025-03-06 06:31] LABS: HEMATOCRIT 30.2 % (36-48); MEAN CORPUSCULAR HEMOGLOBIN 29.7 pg (27.0-33.0); MEAN CORPUSCULAR HGB CONC 32.8 g/dL (32.0-36.0); MEAN CORPUSCULAR VOLUME 90.7 fL (79-99); RED BLOOD CELL COUNT(AUTO) 3.33 MIL/uL (4.00-5.50); RED CELL DISTRIBUTION WIDTH 17.7 % (11.0-15.5); WHITE BLOOD COUNT (AUTO) 8.3 K/uL (4.8-10.8)
[2025-03-06 06:41] LABS: CREATININE 1.7 mg/dL (0.5-1.0); POTASSIUM 4.1 mmol/L (3.5-5.1)
--- NOTE | 2025-03-06 06:42 | PN ---
SUBJECTIVE: The patient is a very pleasant 75-year-old diabetic Latin-Maur[place] female. T-Max is 98.8, pulse 71, respirations 19, blood pressure 151/56. The patient has a white count of 9.0, H and H of 9.4 and 28.2 and platelets 242. BUN and creatinine level 45 and 1.6. Glucose 170. The patient is currently receiving IV tigecycline. Cultures, MRSA and Enterococcus faecalis. She is also receiving metronidazole. The patient is being followed by the Infectious Disease Service. The patient is pending discharge for IV antibiotics for a 6-week course. The patient is currently receiving the IV metronidazole and the IV tigecycline. REVIEW OF SYSTEMS: EXTREMITIES: No pain to the right foot. CONSTITUTIONAL: No chills, fevers or night sweats. No nausea or vomiting. No diarrhea. HEENT: No problems with eyes, ears, nose or throat. CARDIOVASCULAR: Abnormal arterial Doppler studies. The wound is healing well on the right foot. PSYCHIATRIC: Denied any depression.. 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 INTEGUMENTARY: Shows an ulcer to the medial aspect of the right great toe, approximately 15 x 15 mm and 1 mm in depth. She has an interspace ulcer from the second ray amputation site area, 35 x 5 mm x 1 mm. No odor. No pus. No necrosis. No abscess. No cellulitis. Extending to the forefoot. Periwound erythema. The patient has documented chronic osteomyelitis of the right great toe interphalangeal joint on the right. She does have palpable pedal pulses. OBJECTIVE: Examination today showed palpable pedal pulses. The wound is healing well, superficial, clean and granular at the lateral aspect of the right great toe and the second ray amputation site area. ASSESSMENT: Ulcer at the first interspace, first toe, documented chronic osteomyelitis, multidrug-resistant organism infection with methicillin-resistant Staph aureus and Enterococcus faecalis. The patient is receiving tigecycline and metronidazole. PLAN: Six weeks of IV antibiotics as an outpatient. We will continue with metronidazole and tigecycline and morphine for pain. Discharge planning for this patient. Continue with local wound care with Hydrofera Blue dressings. Anticipate discharge with antibiotics per Infectious Disease. The patient will follow up with Dr. Tatum as an outpatient. TID: [id number] RECEIPT: [id number]
[2025-03-06 08:00] VITALS: BP 154/66; PULSE 67; RESP 18; TEMP 98.2; O2SAT 96
[2025-03-06 11:45] VITALS: BP 148/60; PULSE 68; RESP 18; TEMP 97.8
[2025-03-06 16:00] VITALS: BP 144/66; PULSE 75; RESP 18; TEMP 99.2
--- NOTE | 2025-03-06 17:08 | DS ---
[facility] DISCHARGE SUMMARY Date Patient Seen: Mar 06, 2025 Time of Visit: 17:01 Supervising Physician: [Dr. Zhao] Supervising Physician: Dr. Henry Caputo Primary Care Physician: Dr Wiseman Outpatient Specialists: [ ] Inpatient Consults: ID, Podiatry PROBLEM LIST: Nonhealing wound, right foot, POA Right foot cellulitis, wound culture done outside showed Klebsiella pneumoniae, carbapenem resistant Acinetobacter, MRSA, POA Peripheral vascular disease, POA DM type, POA Hypertension, POA Peripheral neuropathy, POA PLAN: Continue IV abx at [facility] Continue wound care with podiatry HOSPITAL COURSE: HPI (per admitting provider) 75-year-old female with past medical history of hypertension, heart murmur, DM type 2, peripheral neuropathy, PVD as s/p right 2nd toe amputation last October [address] Tatum, who presented to ED as a direct admit five Dr. Kim office here for evaluation for possible right foot cellulitis/osteomyelitis. Apparently patient underwent right 2nd toe palpitation last October 10, 2024 afterwards was sent home on outpatient wound care. Per patient two weeks ago patient underwent wound culture, and saw Dr. Tatum for results today. Patient was subsequently advised to come to ED for further medical evaluation and antibiotic therapy since her wound culture showed heavy growth of Klebsiella pneumoniae, Acinetobacter, and MRSA. At present patient is currently hemodynamically stable, on room air with appropriate oxygen saturation, denies any headache, chest pain, fever, flu-like symptoms diarrhea, or difficulty urinating. Patient denies any smoking, alcohol intake illicit drug use. Podiatry and ID was consulted pending evaluation and plan. Patient declined surgical intervention despite understanding risks associated with not having surgical intervention. She was initiated on antibiotics with tigecycline and Flagyl per ID recommendation based on outpatient culture studies. She was advised to continue IV antibiotics [facility] per ID recommendation. Follow-up with Podiatry for continued wound care and further recommendation. The patient was treated for the following problems: ACTIVE PROBLEM LIST FOR THE HOSPITALIZATION: CHRONIC PROBLEMS: continue previous management per PCP unless otherwise indicated DELIVERY ARCHITECT FINDINGS/RECOMMENDATIONS: Per ID note: [[facility] for outpatient IV antibiotics for 6 weeks] Per Podiatry note: Six weeks of IV antibiotics as an outpatient. We will continue with metronidazole and tigecycline and morphine for pain. Discharge planning for this patient. Continue with local wound care with Hydrofera Blue dressings. Anticipate discharge with antibiotics per Infectious Disease. The patient will follow up with Dr. Tatum as an outpatient. PROCEDURES: declined surgical intervention DISCHARGE MEDICATIONS: As listed below Pt hemodynamically stable and afebrile at time of discharge. PCP notified of patients admission, hospital course and discharge. Continued Medications: Diphenhydramine HCl (Benadryl) 25 Mg Capsule 1 CAP PO HS for 30 Days, #30 CAP 0 Refills Melatonin (Melatonin) 10 Mg Capsule 1 CAP PO HS for sleep for 30 Days, #30 CAP 0 Refills Pregabalin (Pregabalin) 75 Mg Capsule 75 MG PO HS, CAP PHYSICAL EXAM: GENERAL: alert, weak, awake oriented x 3 HEENT: EOMI, Sclera non icteric, moist mucosa NECK: Supple, no JVD, trachea midline LUNGS: Clear breath sounds bilaterally. No wheezes HEART: Regular rate and rhythm. Normal S1 and S2, without murmurs ABD: Abdomen soft, nontender. Bowel sounds present EXT: No clubbing cyanosis or edema; right foot cellulitis, with dressing in place NEURO: Alert and oriented to person, follows commands FOLLOW-UP: Follow-up with PCP in two days for re-evaluation. Continue wound care per Podiatry. [facility] for ID recommendation. RECOMMENDATIONS: See Discharge Instructions This case was seen and discussed with my supervising physician. More than 30 minutes spent on discharge process, including evaluation of the patient, discussion with nursing staff, medication reconciliation and follow-up appointments MALISSA CHAIDEZ Mar 06, 2025 17:08
--- NOTE | 2025-03-06 18:14 | NUR ---
PATIENT DISCHARGED HOME ID BAND REMOVED. DISCHARGE INSTRUCTIONS EXPLAINED AND GIVEN TO PATIENT. MEDICINE SCRIPT GIVEN TO PATIENT. PATIENT VERBALIZED UNDERSTANDING. BELONGINGS PACKED AND TAKEN BY PATIENT. WHEELED DOWN TO PRIVATE CAR.
--- NOTE | 2025-03-06 22:47 | PN ---
INFECTIOUS DISEASE PROGRESS NOTE Date of Service: Mar 06, 2025 SUBJECTIVE: This is a 75-year-old female patient who was seen and examined at bedside in room 324. Patient continues on tigecycline IV. During rounding today patient was pending insurance approval to [facility] for outpatient IV antibiotics for 6 weeks. The PICC line has been placed to the left upper extremity. PHYSICAL EXAM EYES: Anicteric. Pupils equal and reactive. HENT: No oral thrush seen, moist Oral mucosa. NECK: Supple, no JVD or thyromegaly. LUNGS: Good air entry. No rales, no rhonchi. CARDIOVASCULAR: S1, S2 regular. No murmur heard. ABDOMEN: Soft, non tender, bowel sounds present, no organomegaly CENTRAL NERVOUS SYSTEM: Awake, alert, oriented x 3. SKIN: No rashes, no swelling. LYMPHATICS: No peripheral lymphadenopathy. MUSCULOSKELETAL: No joint swelling, erythema or tenderness. EXTREMITIES: No cyanosis or clubbing. Right foot diabetic ulcer. BACK: No deformity, no pressure ulcer. GENITOURINARY: No dysuria or hematuria. Vital Sign (Last 12 Hours) 03/06/25 03/06/25 11:45 16:00 Temp 97.9 99.1 Pulse 68 75 Resp 18 18 B/P (MAP) 148/60 144/66 Pulse Ox 98 98 O2 Delivery Room Air Room Air Intake & Output (last 24hrs) 03/05/25 03/05/25 03/06/25 15:00 23:00 07:00 Intake Total 1800 ml Balance 1800 ml LABS: Laboratory: Test 03/06/25 15:56 03/06/25 06:10 Range/Units Whole Blood Glucose 138 H 70-110 MG/DL White Blood Count 8.3 4.8-10.8 K/uL Red Blood Count 3.33 L 4.00-5.50 MIL/uL Hemoglobin 9.9 L 12.0-16.0 g/dL Hematocrit 30.2 L 36-48 % Mean Corpuscular Volume 90.7 79-99 fL Mean Corpuscular Hemoglobin 29.7 27.0-33.0 pg Mean Corpuscular Hemoglobin Concent 32.8 32.0-36.0 g/dL Red Cell Distribution Width 17.7 H 11.0-15.5 % Platelet Count 246 130-400 K/uL Mean Platelet Volume 10.9 H 7.5-10.5 fL Nucleated Red Blood Cells 0.0 0.0-0.19 % Sodium Level 137 136-145 mmol/L Potassium Level 4.1 3.5-5.1 mmol/L Chloride Level 102 101-111 mmol/L Carbon Dioxide Level 28 21-32 mmol/L Blood Urea Nitrogen 47 H 7-18 mg/dL Creatinine 1.7 H 0.5-1.0 mg/dL Glomerular Filtration Rate Calc 31 >90 mL/min Random Glucose 119 H 70-105 mg/dL Total Calcium 8.4 L 8.5-10.1 mg/dL ASSESSMENT: Right foot diabetic ulcer with methicillin-resistant Staphylococcus aureus infection. Right great toe osteomyelitis. Right foot cellulitis. Diabetes mellitus. Peripheral vascular disease. Hypertension. PLAN: Continue tigecycline 50 mg IV every12 hours. Continue metronidazole IV. Patient will need IV antibiotics for 6 weeks. Case management evaluation for referral to [facility] for outpatient IV antibiotics x 6 weeks. Prescription was written. Continue pain management. This case was reviewed and discussed with my supervising physician and the above assessment and plan was formulated and agreed upon. ATTESTATION BY PHYSICIAN I have seen and examined the patient. I reviewed the documentation, medical decision making, and treatment plan as noted by the mid-level provider above. I agree with the findings and plan of care. SARATH HERNANDEZ MD, [facility] Mar 06, 2025 22:47
--- NOTE | 2025-03-09 08:57 | NUR ---
Transitional Phone Call Spoke to patient, states, "I'm doing real good." States she has her medications but is not taking anything for hypertension; re-educated the discharge instructions do not have her continuing to use a hypertension medication; she states "good because my blood pressures are good at home." States she has called her PCP - Asuncion Morrison and the office will call her back to set follow up appointment. [facility] comes in Wednesday, Wednesday and Wednesday to provide wound care, states she is very satisfied with and "happy" with her. States she is going regularly for her antibiotic regiment but is having a hard time finding transportation and patient has a concern with taking a shower/bath alone and keeping the PICC Line and wound dry; referred her to [facility] and notified Syeda. No further questions or concerns at this time.
== END 2025-03-06 18:25 | disposition home or self-care (01) | DRG 638 ==
LOC: EDH 12:30 → EDHIP 14:43 → 3DH 16:14 → UNDODISIN 03-03 16:50
PROVIDERS: ADMIT Internal Medicine Critical Care Medicine; ATTEND Internal Medicine Critical Care Medicine
PROC: 02HV33Z Insertion of Infusion Device into Superior Vena Cava, Percutaneous Approach (ICD-10-PCS; principal; 2025-03-02)
PROC: B548ZZA Ultrasonography of Superior Vena Cava, Guidance (ICD-10-PCS; 2025-03-02)
DX: E11.621 Type 2 diabetes mellitus with foot ulcer (principal); L03.115 Cellulitis of right lower limb; M86.671 Other chronic osteomyelitis, right ankle and foot; Z16.13 Resistance to carbapenem; Z16.24 Resistance to multiple antibiotics; E11.69 Type 2 diabetes mellitus with other specified complication; B95.2 Enterococcus as the cause of diseases classified elsewhere; I10 Essential (primary) hypertension; B95.62 Methicillin resistant Staphylococcus aureus infection as the cause of diseases classified elsewhere; B96.1 Klebsiella pneumoniae [K. pneumoniae] as the cause of diseases classified elsewhere; B96.83 Acinetobacter baumannii as the cause of diseases classified elsewhere; E11.42 Type 2 diabetes mellitus with diabetic polyneuropathy; E11.51 Type 2 diabetes mellitus with diabetic peripheral angiopathy without gangrene; R70.0 Elevated erythrocyte sedimentation rate; E66.9 Obesity, unspecified; E78.00 Pure hypercholesterolemia, unspecified; L97.519 Non-pressure chronic ulcer of other part of right foot with unspecified severity; Z89.421 Acquired absence of other right toe(s); Z83.3 Family history of diabetes mellitus; Z68.34 Body mass index [BMI] 34.0-34.9, adult
CPT/HCPCS: 36415; 36569; 71045; 73630; 73718; 80048; 82948; 83605; 83735; 84100; 84145; 85025; 85027; 85610; 85651; 85730; 86140; 87040; 87070; 87076; 87086; 87186; 93925; 93970; 99285; C1894; G0378; J1650; J3243; J3475; J3490; Q0163